=== PATIENT | male | born 1995 | race Caucasian/White ===

== ENCOUNTER 2023-04-17 23:19 | Emergency (ER) | payer SELFPAY ==
[2023-04-17 23:24] VITALS: BP 135/86; PULSE 75; RESP 18; TEMP 97.6; BMI 33.5
[2023-04-18] MEDS ORDERED: MAG HYDROX/AL HYDROX/SIMETH 30 ML UNIT-DOSE CUP ONE (00:28)
[2023-04-18] MEDS ORDERED: METOCLOPRAMIDE HCL INJECTION 10 MG/2 ML VIAL ONE (00:28)
[2023-04-18] MEDS: LACTATED RINGERS SOLUTION 1000 ML INFUS.BAG IV ONE (00:46)
[2023-04-18] MEDS: MAG HYDROX/AL HYDROX/SIMETH 30 ML UNIT-DOSE CUP PO ONE (00:46)
[2023-04-18] MEDS: METOCLOPRAMIDE HCL INJECTION 10 MG/2 ML VIAL IVPB ONE (00:47)
[2023-04-18 01:09] LABS: BASO % 0.6 % (0-2.0); EOS % 1.3 % (0-4.5); HEMATOCRIT 43.1 % (35.4-49); HEMOGLOBIN 15.2 GM/dL (11.7-16.9); LYMPH % 24.7 % (8-40); MCH 29.9 pg (25.7-33.7); MCHC 35.2 g/dl (32.0-35.9); MEAN CELL VOLUME 84.9 fl (80-96); NEUT % 66.4 % (42.8-82.8); PLATELET COUNT 201 10^3/uL (134-434); RBC 5.08 M/mm3 (4.00-5.60); RDW 13.8 % (11.9-15.9); WHITE BLOOD COUNT 7.2 K/mm3 (4.0-10.0)
[2023-04-18 01:17] LABS: POTASSIUM 4.3 mmol/L (3.5-5.1)
[2023-04-18 01:20] LABS: ALBUMIN 4.2 g/dl (3.4-5.0)
[2023-04-18 01:21] LABS: BLOOD UREA NITROGEN 15.8 mg/dL (7-18)
[2023-04-18 01:23] LABS: CREATININE 1.1 mg/dL (0.55-1.3)
[2023-04-18] MEDS: LORazepam 2 MG/ML SDV VIAL IVPUSH ONE (01:24)
[2023-04-18 01:25] LABS: BILIRUBIN,TOTAL 0.7 mg/dL (0.2-1)
== END 2023-04-18 05:06 | disposition home or self-care (01) ==
LOC: JER 23:19
PROC: 3E033GC Introduction of Other Therapeutic Substance into Peripheral Vein, Percutaneous Approach (ICD-10-PCS; 2023-04-17)
PROC: 3E033GC Introduction of Other Therapeutic Substance into Peripheral Vein, Percutaneous Approach (ICD-10-PCS; principal; 2023-04-18)
DX: R07.2 Precordial pain (principal); R51.9 Headache, unspecified; R11.0 Nausea; F19.10 Other psychoactive substance abuse, uncomplicated; Z20.822 Contact with and (suspected) exposure to COVID-19
CPT/HCPCS: 0241U-QW; 36415; 71046-TC-FY; 80053; 83735; 84484; 85025; 93005; 93010; 99285-25